=== PATIENT | male | born 1960 | race Caucasian/White ===

== ENCOUNTER 2017-02-24 15:14 | Emergency (ER) | payer OTHER, BC ==
[~2017-02-24] VITALS: Ht 182.9 cm; Wt 108.4 kg
[2017-02-24 15:14] VITALS: BP 146/65
--- NOTE | 2017-02-24 16:18 | RAD ---
EXAM: Right 5th finger 3 views. HISTORY: 5th digit injury. Class foreign body. COMPARISON: None. FINDINGS: There is a soft tissue injury at the tip of the 5th digit. No fractures are identified. There is no radiopaque foreign body. 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 There is minimal diffuse interphalangeal osteoarthritis. IMPRESSION: 1. No fracture or radiopaque foreign body.
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
== END 2017-02-24 16:45 | disposition home or self-care (01) ==
LOC: ER 15:14
DX: S61.306A Unspecified open wound of right little finger with damage to nail, initial encounter (principal); W22.8XXA Striking against or struck by other objects, initial encounter; Y93.89 Activity, other specified; Y92.89 Other specified places as the place of occurrence of the external cause; Y99.8 Other external cause status
CPT/HCPCS: 73140; 99284

== ENCOUNTER 2018-01-05 09:54 | Emergency (ER) | payer BC, OTHER ==
[~2018-01-05] VITALS: Ht 185.4 cm; Wt 107.0 kg
[2018-01-05] MEDS ORDERED: IV NORMAL SALINE 1,000ML 1,000 ML IV ONE (10:30)
--- NOTE | 2018-01-05 10:30 | PHYS DOC ---
Past History Past Medical History: Asthma Past Surgical History: Appendectomy Alcohol Use: Occasionally Drug Use: None Adult General Chief Complaint Chief Complaint: GROIN PAIN HPI HPI 57-year-old male presents with lower abdominal and groin pain. Patient was moving some heavy carts of material at work when he had sudden onset of a burning/mild tearing pain in his right groin and abdomen. He did not fall to the ground. There was no impact trauma. The pain is a 1 out of 10 at rest. He further noticed that his belly button seemed to change in shape. Since the pain is persistent and doesn't go away, he is concerned he might have torn something in his abdomen. He denies nausea, vomiting, SOB, CP. He has no other injuries or complaints. No history of previous hernia repairs. Review of Systems Review of Systems Constitutional: Denies fever or chills [] Eyes: Denies change in visual acuity, redness, or eye pain [] HENT: Denies nasal congestion or sore throat [] Respiratory: Denies cough or shortness of breath [] Cardiovascular: No additional information not addressed in HPI [] GI: Denies nausea, vomiting, bloody stools or diarrhea. RLQ abdominal pain [] : Denies dysuria or hematuria [] Musculoskeletal: Denies back pain or joint pain [] Integument: Denies rash or skin lesions [] Neurologic: Denies headache, focal weakness or sensory changes [] Endocrine: Denies polyuria or polydipsia [] All other systems were reviewed and found to be within normal limits, except as documented in this note. Allergies Allergies Allergies Coded Allergies Type Severity Reaction Last Updated Verified No Known Drug Allergies 02/24/17 No Physical Exam Physical Exam Constitutional: Well developed, well nourished, no acute distress, non-toxic appearance. [] HENT: Normocephalic, atraumatic, bilateral external ears normal, oropharynx moist, no oral exudates, nose normal. [] Eyes: PERRLA, EOMI, conjunctiva normal, no discharge. [] Neck: Normal range of motion, no tenderness, supple, no stridor. [] Cardiovascular:Heart rate regular rhythm, no murmur [] Lungs & Thorax: Bilateral breath sounds clear to auscultation [] Abdomen: Bowel sounds normal, soft, no tenderness, no masses, no pulsatile masses. Mild RLQ tenderness, sag of skin in superior umbilicus [] Skin: Warm, dry, no erythema, no rash. [] Back: No tenderness, no CVA tenderness. [] Extremities: No tenderness, no cyanosis, no clubbing, ROM intact, no edema. [] Neurologic: Alert and oriented X 3, normal motor function, normal sensory function, no focal deficits noted. [] Psychologic: Affect normal, judgement normal, mood normal. [] Current Patient Data Vital Signs Vital Signs Date Time Temp Pulse Resp B/P (MAP) Pulse Ox O2 Delivery O2 Flow Rate FiO2 01/05/18 10:07 97.8 77 22 94 Room Air EKG EKG [] Radiology/Procedures Radiology/Procedures CT abdomen and pelvis with contrast History: Abdominal pain, right testicular numbness, feels like belly button moved Technique: After the administration of intravenous contrast, CT imaging was performed of the abdomen and pelvis. No oral contrast was given as per request. Multiplanar images are reviewed. Exposure: One or more of the following individualized dose reduction techniques were utilized for this examination: 1. Automated exposure control 2. Adjustment of the mA and/or kV according to patient size 3. Use of iterative reconstruction technique. Contrast: 75 cc Omnipaque 300 Comparison: None Findings: There is small 0.5 cm focus of either noncalcified nodularity or atelectasis left lower lobe at the lung base. There is no significant abnormality of the liver, spleen, pancreas, adrenal glands. Both kidneys enhance without hydronephrosis. Gallbladder is present without obvious intraluminal abnormality by CT. Accurate evaluation of bowel is limited without oral contrast. There is no significant inflammatory change adjacent to the bowel. There is no evidence of bowel obstruction, free fluid, or free air. There has been appendectomy. There is fat-containing umbilical hernia, neck about 2.1 cm and transverse dimension of hernia sac about 2.8 cm, no internal bowel. There is more advanced degenerative disc disease L4-5 and L5-S1. There is facet degenerative change greater inferiorly of the lumbar spine. There is fairly severe narrowing of the right L5-S1 neural foramen primarily from posteriorly by facet degenerative change although also minimal disc osteophyte complex. There is mild lumbar dextroscoliosis. Impression: 1. There is no significant inflammatory change about the bowel. There has been appendectomy. There is fat-containing umbilical hernia, no internal bowel. 2. There is severe narrowing of the right L5-S1 neural foramen. There is more advanced degenerative disc disease L4-5 and L5-S1. Electronically signed by: Marino Gonzalez MD (01/05/2018 11:01 AM) [id number][] Course & Med Decision Making Course & Med Decision Making Pertinent Labs and Imaging studies reviewed. (See chart for details) The CT scan shows a fat-containing umbilical hernia. There are other findings unrelated to days complaint. Please see the details above. I discussed the results with the patient. He is stable to be discharged at this time. [] Dragon Disclaimer Dragon Disclaimer This electronic medical record was generated, in whole or in part, using a voice recognition dictation system. Departure Departure: Referrals: RODNEY FRANCES MD (PCP) PAKO FAULKNER DO January 05, 2018 10:30
[2018-01-05] MEDS ORDERED: IOHEXOL 300 MG/ML 75 ML VIAL. IV ONE (10:40)
[2018-01-05 10:46] LABS: BASO % 1 % (0-3); EOS # 0.2 x10^3/uL (0.0-0.7); EOS % 3 % (0-3); HEMOGLOBIN 16.1 g/dL (13.0-17.5); LYMPH # 1.6 x10^3/uL (1.0-4.8); LYMPH % 30 % (24-48); MEAN CORPUSCULAR HEMOGLOBIN 31 pg (25-35); MEAN CORPUSCULAR HGB CONC 35 g/dL (31-37); MEAN CORPUSCULAR VOLUME 87 fL (79-100); MONO # 0.6 x10^3/uL (0.0-1.1); MONO % 11 % (0-9); NEUT # 3.1 x10^3uL (1.8-7.7); NEUT % 56 % (31-73); PLATELET COUNT 224 x10^3/uL (140-400); RED BLOOD COUNT 5.27 x10^6/uL (4.30-5.70); RED CELL DISTRIBUTION WIDTH 13.7 % (11.5-14.5); WHITE BLOOD COUNT 5.6 x10^3/uL (4.0-11.0)
[2018-01-05 10:53] LABS: CALCIUM 8.8 mg/dL (8.5-10.1); CREATININE 1.5 mg/dL (0.7-1.3); GFR 48.4; POTASSIUM 3.6 mmol/L (3.5-5.1)
--- NOTE | 2018-01-05 11:04 | RAD ---
CT abdomen and pelvis with contrast History: Abdominal pain, right testicular numbness, feels like belly button moved Technique: After the administration of intravenous contrast, CT imaging was performed of the abdomen and pelvis. No oral contrast was given as per request. Multiplanar images are reviewed. Exposure: One or more of the following individualized dose reduction techniques were utilized for this examination: 1. Automated exposure control 2. Adjustment of the mA and/or kV according to patient size 3. Use of iterative reconstruction technique. Contrast: 75 cc Omnipaque 300 Comparison: None Findings: There is small 0.5 cm focus of either noncalcified nodularity or atelectasis left lower lobe at the lung base. There is no significant abnormality of the liver, spleen, pancreas, adrenal glands. Both kidneys enhance without hydronephrosis. Gallbladder is present without obvious intraluminal abnormality by CT. Accurate evaluation of bowel is limited without oral contrast. There is no significant inflammatory change adjacent to the bowel. There is no evidence of bowel obstruction, free fluid, or free air. There has been appendectomy. There is fat-containing umbilical hernia, neck about 2.1 cm and transverse dimension of hernia sac about 2.8 cm, no internal bowel. There is more advanced degenerative disc disease L4-5 and L5-S1. There is facet degenerative change greater inferiorly of the lumbar spine. There is fairly severe narrowing of the right L5-S1 neural foramen primarily from posteriorly by facet degenerative change although also minimal disc osteophyte complex. There is mild lumbar dextroscoliosis. Impression: 1. There is no significant inflammatory change about the bowel. There has been appendectomy. There is fat-containing umbilical hernia, no internal bowel. 2. There is severe narrowing of the right L5-S1 neural foramen. There is more advanced degenerative disc disease L4-5 and L5-S1. Electronically signed by: Marino Gonzalez MD (01/05/2018 11:01 AM) [email or web address]
[2018-01-05 11:49] VITALS: BP 109/58
== END 2018-01-05 11:50 | disposition home or self-care (01) ==
LOC: ER 09:54
DX: K42.9 Umbilical hernia without obstruction or gangrene (principal); J45.909 Unspecified asthma, uncomplicated; Z90.49 Acquired absence of other specified parts of digestive tract
CPT/HCPCS: 36415; 74177; 80048; 85025; 99285; Q9967; J7030

== ENCOUNTER 2021-10-04 10:29 | Emergency (ER) | payer OTHER ==
[~2021-10-04] VITALS: Ht 185.4 cm; Wt 105.0 kg
[2021-10-04 10:35] VITALS: BP 157/98
[2021-10-04] MEDS ORDERED: ACETAMINOPHEN 500 MG TABLET PO ONE (10:45)
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
[2021-10-04] MEDS ORDERED: POLY119P4 PO (12:16)
[2021-10-04] MEDS ORDERED: HYDR-2155 PO (12:16)
[2021-10-04] MEDS ORDERED: OXYC-325 PO ×2 (12:20→12:21)
--- NOTE | 2021-10-04 12:52 | RAD ---
CT of right lower extremity dated 10/04/2021. COMPARISON: None. Clinical indication: Evaluate calcaneal fracture. TECHNIQUE: Contiguous axial imaging of the right ankle performed with thin cut coronal and sagittal reconstructi on. One or more of the following individualized dose reduction techniques were utilized for this examinat ion: 1. Automated exposure control 2. Adjustment of the mA and/or kV according to patient size 3. Use of iterative reconstruction technique. FINDINGS: There is comminuted intra-articular fracture of the calcaneus. Fracture lines extend to the posterior subtalar joint and to the junction of the middle and anterior facets. There is bony depression with loss of Boehler's angle. The tuberosity is mildly displaced superolaterally from the calcaneal body. Fracture lines extend to the calcaneocuboid joint. The cuboid bone is intact. Distal tibia and fibula r intact. The talar dome is intact. No additional fractures are seen. There is edema throughout the subcutaneous tissues, greatest on the lateral side. Ankle ligaments and tendons are not well evaluated based on technique. Small effusion at the posterior subtalar joint. N o tibiotalar joint effusion. IMPRESSION: 1. Comminuted depressed intra-articular fracture of the calcaneus. Please see above report for detail s. Electronically signed by: Aroldo Guerra MD (10/04/2021 12:50 PM) [id number]
== END 2021-10-04 12:50 | disposition home or self-care (01) ==
LOC: ER 10:29
DX: S92.061A Displaced intraarticular fracture of right calcaneus, initial encounter for closed fracture (principal); S00.81XA Abrasion of other part of head, initial encounter; I10 Essential (primary) hypertension; J45.909 Unspecified asthma, uncomplicated; V49.9XXA Car occupant (driver) (passenger) injured in unspecified traffic accident, initial encounter; Y93.89 Activity, other specified; Y92.89 Other specified places as the place of occurrence of the external cause; Y99.8 Other external cause status
CPT/HCPCS: 29515; 73610; 73630; 73700; 99284